=== PATIENT | female | born 1960 | race Hispanic/Latino ===

== ENCOUNTER 2019-03-20 06:47 | Day surgery (SDC) | payer BC ==
--- NOTE | 2019-03-18 14:37 | RAD REPORT ---
EXAM DESCRIPTION: RAD - Chest Pa And Lat (2 Views) - 03/18/2019 2:30 pm CLINICAL HISTORY: preop Chest pain. COMPARISON: No comparisons FINDINGS: The lungs are clear. The heart is normal in size. No displaced fractures. Cholecystectomy clips. IMPRESSION: No acute or concerning finding suspected.
[2019-03-18 15:37] LABS: Absolute Lymphocytes (CBC) 1.1 K/uL (0.7-4.9); Basophils % 0.4 % (0-1.3); Lymphocytes % 24.1 % (15.3-44.8); MPV 9.2 fL (7.6-11.3)
[2019-03-18 15:44] LABS: Potassium 3.8 mmol/L (3.5-5.1)
--- NOTE | 2019-03-18 15:54 | EKG ---
Test Date: 2019-03-18 Test Time: 14:22:10 Skid Strapper: TATYANA MEASUREMENT RESULTS: Intervals: Rate: 72 ND: 110 QRSD: 76 QT: 400 QTc: 438 [place]: P: 63 ND: 110 QRS: 56 T: 34 INTERPRETIVE STATEMENTS: Sinus rhythm with short ND Otherwise normal ECG Compared to ECG 12/09/2015 01:12:45 Short ND interval now present T-wave abnormality no longer present Electronically Signed On 03-18-19 15:53:17 HELICOPTER DISPATCHER by Iván Villarreal
[2019-03-20] MEDS ORDERED: CEFAZOLIN/SWI 1gm 1 GM/10 ML SYR ONE (07:07)
[2019-03-20] MEDS ORDERED: Ringers Lactate 1,000 ML IV ONE (07:07)
[2019-03-20] MEDS ORDERED: PROPOFOL 200 MG/20 ML VIAL IV ONE (08:53)
[2019-03-20] MEDS ORDERED: LIDOCAINE 1% MPF 5 ML VIAL ONE (08:53)
[2019-03-20] MEDS ORDERED: MIDAZOLAM HCL 2 MG/2 ML INJ ONE (08:53)
[2019-03-20] MEDS ORDERED: FENTANYL CITR 100 MCG/2 ML ONE (08:53)
[2019-03-20] MEDS ORDERED: KETOROLAC 30 MG/ML INJ ONE (09:08)
[2019-03-20] MEDS ORDERED: ONDANSETRON 4 MG/2 ML VIAL ONE (09:08)
--- NOTE | 2019-03-20 10:00 | P.BOP ---
Preoperative diagnosis: left inner thigh tender subQ mass Postoperative diagnosis: same Primary procedure: excisional biopsy left inner thigh tender subQ mass 7x4cm Doughnut Maker: Lola Goodwin (Efrain) Estimated blood loss: <10cc Specimen: left inner thigh subQ mass Findings: as above, deep root Anesthesia: General Complications: None Transferred to: Recovery Room Condition: Good
[2019-03-20 10:26] VITALS: O2SAT 98
[2019-03-20] MEDS ORDERED: TRAMADOL 37.5mg/APAP 325mg PER TAB ONE (10:31)
[2019-03-20 11:20] VITALS: BP 130/73; TEMP 97.3
--- NOTE | 2019-03-20 21:27 | OP ---
Date of Procedure: 03/20/2019 Surgeon: Maco Reyes MD Academic Vice President: Lola Danielson. Preoperative Diagnosis: Left inner thigh tender subcutaneous mass. Postoperative Diagnosis: Left inner thigh tender subcutaneous mass. Procedure Performed: Excisional biopsy of left inner thigh, it is tender subcutaneous mass 7 x 4 cm. Estimated Blood Loss: Less than 10 mL. Specimen: Subcutaneous mass. Findings: Subcutaneous mass goes deep into the area near the muscle and the fascia in that area does not penetrate the muscle. The mass was removed in 1 unit. Indications: This is the case of a 58-year-old patient with a left inner thigh mass coming from the subcutaneous tissue, increasing in size, giving her pain and discomfort. She wants that excised. Th e benefits, alternatives, and risks of excision were fully explained, which include, but are not limi rajesh to infection, bleeding, damage to adjacent structures, anesthesia complications, nonhealing wound , MS, and even . She also understands this may not relieve any symptoms. She might need more t barraza one surgical intervention. She understood, signed a consent. She was also explained to pay spec ial attention since this is an area in the inner thigh rubbing against the opposite thigh to avoid an y injury and abrasion over the area. Keep the area covered. She signed the consent. The area of co ncern was marked by me and the patient in the holding room. Description Of Procedure: The patient was brought to the operating room, placed in supine position. Anesthesia was done without complication. The patient was placed in lithotomy position. An incisio n was made in a wedge fashion, so we have to include part of the skin since it is attached to this ma ss. Incision was carried down to deep subcutaneous tissue and then we identified the mass and with t he help of blunt dissection, we were able to identify the edges of that. It goes deep down to the mu scle, but does not penetrate the muscle. The mass was removed carefully in 1 unit. Hemostasis obtai harry. But then we have to close this in multiple layers since it is a deep cavity there, so we used 3 -0 chromic multiple layers inside and then the skin was approximated with 3-0 nylon in a running fash ion. Irrigation and hemostasis were obtained before closure, also local anesthetic. The patient zen erated the procedure well. Patient was sent to Recovery in stable condition. HM/MODL Voice ID: [id number] Report ID: [id number]
--- NOTE | 2019-03-20 21:33 | OP ---
Surgeon: Maco Reyes MD Diagnoses: Left inner thigh tender subcutaneous mass. Procedure: Excisional biopsy of left inner thigh tender subcutaneous mass 7 x 4 cm. Disposition: Home. Activity: As tolerated. No heavy lifting. Followup: Follow up in my office in 1 week. Call for appointment, [phone]. Keep area dry for 48 h ours, then may shower, then replace the gauze with triple antibiotics on it. Medications: Ultracet q.4 hours p.r.n. pain and Bactrim DS p.o. b.i.d. JEN/MILI Voice ID: [id number] Report ID: [id number]
== END 2019-03-20 11:00 | disposition home or self-care (01) ==
LOC: OR 06:47
PROVIDERS: ATTEND Surgery
PROC: 0JBM0ZZ Excision of Left Upper Leg Subcutaneous Tissue and Fascia, Open Approach (ICD-10-PCS; principal; 2019-03-20 09:15)
DX: R22.42 Localized swelling, mass and lump, left lower limb (principal); K21.9 Gastro-esophageal reflux disease without esophagitis; I73.00 Raynaud's syndrome without gangrene; Z88.6 Allergy status to analgesic agent; Z90.49 Acquired absence of other specified parts of digestive tract; Z83.3 Family history of diabetes mellitus; Z82.49 Family history of ischemic heart disease and other diseases of the circulatory system
CPT/HCPCS: 93005; 85025; 80048; 36415; 88304; 71046; 11406; J2704; J2250; J3010; J0690; J7120; J2405